=== PATIENT | male | born 1960 | race African-American/Black ===

== ENCOUNTER 2024-04-02 19:00 | Emergency (ER) | payer BC ==
[2024-04-02] MEDS ORDERED: MORPHINE 4 MG/ML SYR ONE (19:37)
[2024-04-02] MEDS ORDERED: ONDANSETRON 4 MG/2 ML VIAL ONE (19:37)
[2024-04-02 19:56] LABS: Absolute Basophils 0.1 K/uL (0-0.5); Absolute Eosinophils 0.2 K/uL (0-0.5); Absolute Lymphocytes (CBC) 1.9 K/uL (0.7-4.9); Absolute Monocytes 0.7 K/uL (0.1-1.3); Absolute Neutrophil 3.6 K/uL (1.8-8.0); Basophils % 1.3 % (0-1.3); Eosinophils % 2.7 % (0-4.4); Hematocrit 44.6 % (39.6-49.0); Lymphocytes % 29.7 % (15.3-44.8); MCH 31.1 pg (27.0-35.0); MCHC 33.6 g/dL (32.0-36.0); MCV 92.5 fL (80-100); MPV 8.1 fL (7.6-11.3); Monocytes % 10.7 % (3.3-12.3); Neutrophils % 55.6 % (41.7-73.7); Nucleated Red Blood Cells % 0.1 % (0-0); Platelets 181 thou/uL (152-406); RBC Red Blood Cell Count 4.82 M/uL (4.33-5.43); Red Cell Distribution Width 13.1 % (12.1-15.2)
--- NOTE | 2024-04-02 20:06 | RAD REPORT ---
Stone Protocol CLINICAL INDICATION: Male, 63 years old.left flank pain TECHNIQUE: CT abdomen and pelvis was performed, without IV contrast, as per department protocol using a CT stone protocol. Axial, sagittal and coronal reconstructions were obtained. One or more of the following dose reduction techniques were used: Automated exposure control, adjustment of the mA and/o r kV according to the patient size, and/or iterative reconstruction. Unless otherwise specified, incidental findings do not require dedicated imaging follow-up. [id number]. IV CONTRAST: Not administered. COMPARISON: None FINDINGS: The lack of intravenous contrast limits the sensitivity of this exam for evaluation of solid visceral organs, vascular structures, and retroperitoneum. Small fat-containing umbilical hernia. LOWER CHEST: The visualized lung bases are clear. Coronary stents. LIVER: Normal in size and contour. No focal lesion. GALLBLADDER/BILE DUCTS: No biliary ductal dilatation.? PANCREAS: No mass, ductal dilation, or hilda-pancreatic fluid. SPLEEN: Normal size. No focal lesion. ADRENALS: 15 mm adrenal nodule with ostomy units compatible with an adenoma. No follow-up is required . KIDNEYS AND URETERS: Normal size and contour. No hydronephrosis. URINARY BLADDER: Normal contour. GASTROINTESTINAL TRACT: Stomach is non-dilated. Small bowel has normal course and caliber. No colonic wall thickening or pericolonic inflammatory changes. Normal appendix PERITONEUM: No free fluid. ABDOMINAL AORTA AND OTHER VESSELS: Normal caliber aorta and IVC. Mild atherosclerosis REPRODUCTIVE ORGANS: No pathologic process. MUSCULOSKELETAL: No acute or suspicious osseous abnormality. Moderate to severe disc height loss L5-S 1. ADDITIONAL FINDINGS: None. IMPRESSION: No acute or significant abnormalities in the abdomen or pelvis, with evaluation limited by lack of IV contrast. No urinary tract calculi identified. Normal appendix.
[2024-04-02 20:12] LABS: Albumin 3.5 g/dL (3.4-5.0); Albumin/Globulin Ratio 0.9 (1.1-1.8); Anion Gap 9.9 mEq/L (5.0-15.0); Bilirubin Total 1.3 mg/dL (0.2-1.0); Potassium 3.9 mEq/L (3.5-5.1); Protein, Total 7.5 g/dL (6.4-8.2)
[2024-04-02 20:53] LABS: Specific Gravity 1.028 (1.005-1.030); Sqamous Epithelial <5 /HPF (None Seen); Urine Bacteria None Seen /HPF (<20); Urine Bilirubin NEGATIVE (Negative); Urine Blood 1+ (Negative); Urine Clarity Clear (Clear); Urine Color Light-Yellow (Yellow); Urine Culture Reflex Order NOT NEEDED; Urine Glucose NEGATIVE (Negative); Urine Ketones NEGATIVE (Negative); Urine Microscopic Reflex YN ORDER UMIC; Urine Mucus Slight /HPF (None Seen); Urine Nitrite NEGATIVE (Negative); Urine Protein TRACE (Negative); Urine RBC <5 /HPF (None Seen); Urine Urobilinogen 1+ (Normal); Urine WBC <5 /HPF (<5); Urine Yeast (Budding) Trace /HPF (None Seen); Urine pH 5.5 (5.0-7.0)
[2024-04-02] MEDS ORDERED: METHOCARBAMOL 1,000 MG/10 ML VIAL ONE (22:01)
[2024-04-02] MEDS ORDERED: KETOROLAC 30 MG/ML INJ ONE (22:01)
[2024-04-02] MEDS ORDERED: NA CHLORIDE 0.9% 100 ML ONE (22:02)
[2024-04-02] MEDS ORDERED: LIDOCAINE 4% PATCH ONE (22:48)
[2024-04-02] MEDS ORDERED: HYDROCODONE/APAP 7.5/325 MG TAB ONE (22:48)
--- NOTE | 2024-04-02 22:55 | EDPHYS ---
Physician Documentation [facility] Name: Kiko Combs Age: 63 yrs Sex: Male : 1960 Arrival Date: 04/02/2024 Time: 19:00 Bed 17 Private MD: ED Physician Mike Garcia HPI: 04/02 19:30 This 63 yrs old Black Male presents to ER via Ambulatory with complaints of Flank Pain. cp 19:30 The patient complains of pain in the left flank. cp 19:30 Onset: The symptoms/episode began/occurred 3 week(s) ago. cp 19:30 Modifying factors: the symptoms are aggravated by movement, palpation/percussion. cp Associated signs and symptoms: Pertinent positives: difficulty urinating, Pertinent negatives: diarrhea, fever, pain radiating to the lower extremities, vomiting, abdominal pain. Severity of pain: in the emergency department the pain is unchanged despite home interventions. Historical: - Allergies: 19:09 No Known Allergies; iw - PSHx: 19:09 None; iw - Immunization history:: Adult Immunizations not up to date. - Infectious Disease History:: Denies. - Social history:: Smoking status: Patient/guardian denies using tobacco, the patient reports quitting approximately 2 years ago. ROS: 19:35 Constitutional: Negative for body aches, chills, fever, poor PO intake, cp 19:35 Eyes: Negative for injury, pain, redness, and discharge, cp 19:35 ENT: Negative for drainage from ear(s), ear pain, sore throat, difficulty swallowing, difficulty handling secretions, 19:35 Cardiovascular: Negative for chest pain, palpitations, 19:35 Respiratory: Negative for cough, shortness of breath, wheezing, 19:35 Abdomen/GI: Negative for abdominal pain, nausea, vomiting, and diarrhea, 19:35 Back: Positive for pain at rest, pain with movement, flank pain, on the left, Negative for injury or acute deformity, 19:35 : Positive for difficulty urinating, Negative for hematuria, burning with urination, testicular pain 19:35 Skin: Negative for cellulitis, rash, 19:35 Neuro: Negative for altered mental status, dizziness, headache, numbness, weakness, 19:35 All other systems are negative, Exam: 19:40 Constitutional: The patient appears in no acute distress, alert, awake, cp non-diaphoretic, non-toxic, well developed, well nourished, uncomfortable, 19:40 Head/Face: Normocephalic, atraumatic. cp 19:40 Eyes: Periorbital structures: appear normal, Conjunctiva: normal, no exudate, no injection, Sclera: no appreciated abnormality, Lids and lashes: appear normal, bilaterally, 19:40 ENT: External ear(s): are unremarkable, Nose: is normal, Mouth: Lips: moist, Oral mucosa: pink and intact, moist, Posterior pharynx: Airway: no evidence of obstruction, patent, 19:40 Chest/axilla: Inspection: normal, 19:40 Cardiovascular: Rate: normal, Rhythm: regular, Edema: is not appreciated, JVD: is not appreciated, 19:40 Respiratory: the patient does not display signs of respiratory distress, Respirations: normal, no use of accessory muscles, no retractions, labored breathing, is not present, Breath sounds: are clear throughout, no decreased breath sounds, no stridor, no wheezing, 19:40 Abdomen/GI: Inspection: abdomen appears normal, Palpation: abdomen is soft and non-tender, in all quadrants, 19:40 Back: pain, that is moderate, of the left low back and left mid back, ROM is painful, with all movement, vertebral tenderness, is not appreciated, 19:40 Skin: cellulitis, is not appreciated, no rash present. 19:40 Neuro: Orientation: to person, place \T\ time. Mentation: is normal, Motor: moves all fours, strength is normal, Sensation: is normal, Gait: is steady, Vital Signs: 19:08 BP 154 / 90; Pulse 78; Resp 16; Temp 98.4; Pulse Ox 100% on R/A; Weight 92.99 kg; iw Height 6 ft. 0 in. ; Pain 8/10; 20:00 BP 132 / 98; Pulse 64; Resp 18 S; Pulse Ox 100% on R/A; Pain 6/10; br2 20:00 BP 139 / 83; Pulse 61; Resp 18 S; Temp 97.2; Pulse Ox 100% on R/A; Pain 2/10; br2 21:00 BP 123 / 84; Pulse 59; Resp 18 S; Temp 97.2; Pulse Ox 98% on R/A; br2 19:08 Body Mass Index 27.80 (92.99 kg, 182.88 cm) iw 19:08 Pain Scale: Adult iw 20:00 Pain Scale: Adult br2 20:00 Pain Scale: Adult br2 MDM: 19:11 Medical Screening Exam initiated luisito 20:00 Differential diagnosis: nephrolithiasis, pyelonephritis, UTI, diverticulitis, cp pancreatitis, ruptured AAA, dissecting AAA. 22:53 Data reviewed: vital signs, nurses notes, lab test result(s), radiologic studies, CT cp scan, and as a result, I will discharge patient. 22:53 I considered the following discharge prescriptions or medication management in the emergency department Medications were administered in the Emergency Department. See MAR. Counseling: I had a detailed discussion with the patient and/or guardian regarding the historical points, exam findings, and any diagnostic results supporting the discharge/admit diagnosis, lab results, radiology results, to return to the emergency department if symptoms worsen or persist or if there are any questions or concerns that arise at home. Response to treatment: the patient's symptoms have mildly improved after treatment, and as a result, I will discharge patient. 04/02 19:21 Order name: CBC with Diff; Complete Time: 21:26 cp 04/02 19:21 Order name: CMP; Complete Time: 21:26 cp 04/02 19:21 Order name: Lipase; Complete Time: 21:26 cp 04/02 19:21 Order name: Urinalysis w/ reflexes; Complete Time: 21:26 cp 04/02 19:21 Order name: Urine Culture 04/02 19:21 Order name: CT Stone Protocol; Complete Time: 21:26 cp 04/02 19:21 Order name: IV Saline Lock; Complete Time: 19:48 cp 04/02 19:21 Order name: Labs collected and sent; Complete Time: 19:48 cp 04/02 22:35 Order name: Bladder Scanner; Complete Time: 22:54 cp Administered Medications: 19:49 Drug: Ondansetron IVP 4 mg IVP once; over 2 minutes Route: IVP; Site: left antecubital; br2 20:15 Follow up: Response: No adverse reaction br2 19:49 Drug: morphine IVP or IV 4 mg IVP once over 4 mins Route: IVP; Infused Over: 4 mins; br2 Site: left antecubital; 20:15 Follow up: Response: No adverse reaction; Pain is decreased br2 22:14 Drug: Methocarbamol IVPB 1 grams IVPB once over 1 hrs; (mix in NS 100 mL) Route: IVPB; br2 Infused Over: 1 hrs; Site: left antecubital; 23:18 Follow up: Response: No adverse reaction; IV Status: Completed infusion; IV Intake: br2 100ml 22:14 Drug: Ketorolac IVP 15 mg IVP once Route: IVP; Site: left antecubital; br2 23:18 Follow up: Response: No adverse reaction br2 22:54 Drug: Lidoderm Topical Patch 5 % (700 mg/patch) 1 patches Topical once; leave on for 12 br2 hours; cover most painful area; may cut into smaller pieces Route: Topical; Site: affected area; 23:17 Follow up: Response: No adverse reaction br2 22:54 Drug: Hydrocodone-Acetaminophen PO (7.5 mg-325 mg) 1 tabs PO once; RASS on ADMIN: br2 Combtv4, Very Agttd3, Agttd2, Rstlss1, AlertClm0, Drwsy-1, Lt Sdtn-2, Mod Sdtn-3, Dp Sdtn-4, UnArsble-5 Route: PO; 23:17 Follow up: Response: No adverse reaction br2 Disposition Summary: 04/02/24 22:54 Discharge Ordered Notes: Location: Home cp Problem: new cp Symptoms: have improved cp Condition: Stable cp Diagnosis - Strain of muscle and tendon of back wall of thorax - left cp Followup: cp - With: Private Physician - When: 2 - 3 days - Reason: Recheck today's complaints Discharge Instructions: - Discharge Summary Sheet cp - Muscle Strain cp - Thoracic Strain cp Forms: - Medication Reconciliation Form cp - Antibiotic Education cp - Prescription Opioid Use cp - Patient Portal Instructions cp - Leadership Thank You Letter cp Prescriptions: - Anaprox DS 550 mg Oral Tablet - take 1 tablet ORAL route every 12 hours As needed; 20 tablet; Refills: 0, cp Product Selection Permitted - Medrol (Reza) 4 mg Oral Tablets, Dose Pack - take 1 tablet ORAL route as directed - follow package instructions; 1 packet; cp Refills: 0, Product Selection Permitted - methocarbamol 750 mg Oral tablet - take 1 tablet ORAL route every 6-8 hours; 30 tablet; Refills: 0, Product cp Selection Permitted Addendum: 04/04/2024 11:25 I was immediately available on-site in the Emergency Department for consultation in the m s3 care of the patient. Signatures: Dispatcher [employer] EDMS Edy Barrientos MD MD cha Williams, Irene, RN RN Edy Johnson PA PA cp Sims, Marcus, DO DO ms3 Susana Zarate RN RN br2 Corrections: (The following items were deleted from the chart) 04/02 19:21 19:21 CBC+H.LAB.BRZ ordered. EDMS EDMS 19:21 19:21 COMPREHENSIVE METABOLIC PANEL+C.LAB.BRZ ordered. EDMS EDMS 19:21 19:21 LIPASE+C.LAB.BRZ ordered. EDMS EDMS 19:21 19:21 Urinalysis+U.LAB.BRZ ordered. EDMS EDMS 19:21 19:21 Urine Culture+BA.LAB.BRZ ordered. EDMS EDMS
--- NOTE | 2024-04-02 22:55 | ER ---
Nurse's Notes [facility] Name: Kiko Combs Age: 63 yrs Sex: Male : 1960 Arrival Date: 04/02/2024 Time: 19:00 Bed 17 Private MD: Diagnosis: Strain of muscle and tendon of back wall of thorax-left Presentation: 04/02 19:08 Chief complaint: Patient states: pain on left mid back/rib area X 3 weeks, thought it iw was gas or a pulled muscle , pain worse today , tender to touch , I have to strain to get my urine out. Coronavirus screen: At this time, the client does not indicate any symptoms associated with coronavirus-19. Ebola Screen: No symptoms or risks identified at this time. Initial Sepsis Screen: Does the patient meet any 2 criteria? No. Patient's initial sepsis screen is negative. Does the patient have a suspected source of infection? No. Patient's initial sepsis screen is negative. Risk Assessment: Do you want to hurt yourself or someone else? Patient reports no desire to harm self or others. Onset of symptoms was March 14, 2024. 19:08 Method Of Arrival: Ambulatory iw 19:08 Acuity: KRUNAL 3 iw Historical: - Allergies: 19:09 No Known Allergies; iw - PSHx: 19:09 None; iw - Immunization history:: Adult Immunizations not up to date. - Infectious Disease History:: Denies. - Social history:: Smoking status: Patient/guardian denies using tobacco, the patient reports quitting approximately 2 years ago. Screenin:10 [facility] ED Fall Risk Assessment (Adult) History of falling in the last 3 months, br2 including since admission No falls in past 3 months (0 pts) Confusion or Disorientation No (0 pts) Intoxicated or Sedated No (0 pts) Impaired Gait No (0 pts) Mobility Assist Device Used No (0 pt) Altered Elimination No (0 pt) Score/Fall Risk Level 0 - 2 = Low Risk Oriented to surroundings. Abuse screen: Denies threats or abuse. Nutritional screening: No deficits noted. Tuberculosis screening: No symptoms or risk factors identified. Assessment: 19:15 Reassessment: Patient and/or family updated on plan of care and expected duration. Pain br2 level reassessed. Patient is alert, oriented x 3, equal unlabored respirations, skin warm/dry/pink. General: Appears uncomfortable, Behavior is calm, cooperative. Pain: Complains of pain in left subscapular area Pain does not radiate. Pain currently is 5 out of 10 on a pain scale. Neuro: Courtney Agitation-Sedation Scale (RASS): 0 - Alert and Calm Level of Consciousness is awake, alert, obeys commands, Oriented to person, place, time, situation. Cardiovascular: Reports None Capillary refill < 3 seconds. Respiratory: Airway is patent Respiratory effort is even, unlabored, Respiratory pattern is regular, symmetrical. GI: No signs and/or symptoms were reported involving the gastrointestinal system. : No signs and/or symptoms were reported regarding the genitourinary system. EENT: No signs and/or symptoms were reported regarding the EENT system. EENT: No signs and/or symptoms were reported regarding the EENT system. Derm: No signs and/or symptoms reported regarding the dermatologic system. Musculoskeletal: Reports pain in anterior aspect of left lateral abdomen. Vital Signs: 19:08 BP 154 / 90; Pulse 78; Resp 16; Temp 98.4; Pulse Ox 100% on R/A; Weight 92.99 kg; iw Height 6 ft. 0 in. ; Pain 8/10; 20:00 BP 132 / 98; Pulse 64; Resp 18 S; Pulse Ox 100% on R/A; Pain 6/10; br2 20:00 BP 139 / 83; Pulse 61; Resp 18 S; Temp 97.2; Pulse Ox 100% on R/A; Pain 2/10; br2 21:00 BP 123 / 84; Pulse 59; Resp 18 S; Temp 97.2; Pulse Ox 98% on R/A; br2 19:08 Body Mass Index 27.80 (92.99 kg, 182.88 cm) iw 19:08 Pain Scale: Adult iw 20:00 Pain Scale: Adult br2 20:00 Pain Scale: Adult br2 ED Course: 19:02 Patient arrived in ED. im 19:04 Edy Vergara PA is PHCP. cp 19:04 Edy Barrientos MD is Attending Physician. cp 19:09 Triage completed. iw 19:10 Arm band placed on. iw 19:10 Patient has correct armband on for positive identification. Placed in gown. Bed in low br2 position. Call light in reach. Side rails up X 1. Provided Education on: PLAN OF CARE. 19:33 Susana Zarate, RN is Primary Nurse. br2 19:43 Initial lab(s) drawn, by me, sent to lab. Inserted saline lock: 20 gauge in left ty antecubital area, using aseptic technique. Blood collected. Flushed with 10 mL NS. 19:48 CBC with Diff Sent. ty 19:48 CMP Sent. ty 19:48 Lipase Sent. ty 19:50 Report received from [facility]. br2 19:54 CT Stone Protocol In Process Unspecified. EDMS 20:38 Urine Culture Sent. vk 20:39 Urine collected: clean catch specimen, clear. vk 22:31 Mike Garcia DO is Attending Physician. cp 23:17 No provider procedures requiring assistance completed. IV discontinued, intact, br2 bleeding controlled, No redness/swelling at site. 23:20 Bladder scan completed. 91ML. br2 Administered Medications: 19:49 Drug: Ondansetron IVP 4 mg IVP once; over 2 minutes Route: IVP; Site: left antecubital; br2 20:15 Follow up: Response: No adverse reaction br2 19:49 Drug: morphine IVP or IV 4 mg IVP once over 4 mins Route: IVP; Infused Over: 4 mins; br2 Site: left antecubital; 20:15 Follow up: Response: No adverse reaction; Pain is decreased br2 22:14 Drug: Methocarbamol IVPB 1 grams IVPB once over 1 hrs; (mix in NS 100 mL) Route: IVPB; br2 Infused Over: 1 hrs; Site: left antecubital; 23:18 Follow up: Response: No adverse reaction; IV Status: Completed infusion; IV Intake: br2 100ml 22:14 Drug: Ketorolac IVP 15 mg IVP once Route: IVP; Site: left antecubital; br2 23:18 Follow up: Response: No adverse reaction br2 22:54 Drug: Lidoderm Topical Patch 5 % (700 mg/patch) 1 patches Topical once; leave on for 12 br2 hours; cover most painful area; may cut into smaller pieces Route: Topical; Site: affected area; 23:17 Follow up: Response: No adverse reaction br2 22:54 Drug: Hydrocodone-Acetaminophen PO (7.5 mg-325 mg) 1 tabs PO once; RASS on ADMIN: br2 Combtv4, Very Agttd3, Agttd2, Rstlss1, AlertClm0, Drwsy-1, Lt Sdtn-2, Mod Sdtn-3, Dp Sdtn-4, UnArsble-5 Route: PO; 23:17 Follow up: Response: No adverse reaction br2 Medication: 23:17 VIS not applicable for this client. br2 Intake: 23:18 IV: 100ml; Total: 100ml. br2 Outcome: 22:54 Discharge ordered by MD. cp 23:17 Discharged to home ambulatory, br2 23:17 Condition: improved 23:17 Discharge instructions given to patient, Instructed on discharge instructions, follow up and referral plans. Demonstrated understanding of instructions, follow-up care, medications, Prescriptions given X 3, 23:21 Patient left the ED. br2 Signatures: Dispatcher [employer] EDMS Misty Ricci RN RN Edy Johnson PA PA cp Mendoza, Itzel im Kruse, Vivian vk Yandell, Tylor ty Riddle, Belinda, RN RN br2 Corrections: (The following items were deleted from the chart) 23:16 21:00 BP 132 / 98; Pulse 64bpm; Resp 18bpm; Spontaneous; Pulse Ox 100% RA; Pain 11/21, br2 Adult; br2
[2024-04-03 04:16] VITALS: TEMP 97.2
[2024-04-03 04:17] VITALS: BP 123/84; O2SAT 98
== END 2024-04-02 23:21 | disposition home or self-care (01) ==
LOC: ER 19:00
DX: S29.012A Strain of muscle and tendon of back wall of thorax, initial encounter (principal)
CPT/HCPCS: 96365; 87088; 85025; 81001; 87086; 36415; 83690; 80053; 76377; 74176; 96375; 99284; Q9967; J2001; J2405; J2800